=== PATIENT | male | born 1990 | race Caucasian/White ===

== ENCOUNTER 2017-03-07 05:33 | Emergency (ER) | payer OTHER ==
[~2017-03-07] VITALS: Ht 177.8 cm; Wt 78.3 kg
[~2017-03-07 05:33] MED LIST: DOXYCYCLINE HY100 MG PO; FLEXERIL10 MG PO; MOTRIN600 MG PO; NAPROSYN500 MG PO; OXYCONTIN40 MG PO; REGLAN5 MG PO; TRAMADOL HCL50 MG PO; ZOFRAN ODT4 MG PO
[2017-03-07 06:38] LABS: EOSINOPHIL (%) 1.4 % (0-5); EOSINOPHIL COUNT 0.2 K/uL (0-0.3); HEMATOCRIT 44.7 % (38.0-50.0); IMMATURE GRANULOCYTE (%) 0.2 % (0.0-0.7); INSTRUMENT ABS NEUTROPHIL CT 7.5 K/uL; MCH 28.5 PG (29.0-34.0); MCHC 33.6 G/DL (30.0-36.0); MCV 84.8 FL (86-99); MEAN PLAT.VOLUME 10.7 uM^3 (9.0-12.4); MONOCYTE (%) 7.2 % (3-12); MONOCYTE COUNT 0.8 K/uL (0-0.8); NEUTROPHIL (%) 71.9 % (45-76); NEUTROPHIL COUNT 7.5 K/uL (1.8-6.4); PLATELET COUNT 212 K/uL (156-360); RBC DIS.WIDTH-CV 12.9 % (11.8-14.6); RBC DIS.WIDTH-SD 39.4 % (39-53); RED BLOOD COUNT 5.27 M/uL (4.00-5.50); WHITE BLOOD COUNT 10.5 K/uL (4.1-10.2)
[2017-03-07 06:49] LABS: CHLORIDE 102 mEq/L (99-109); POTASSIUM 3.9 mEq/L (3.7-5.4); SODIUM 139 mEq/L (136-147)
[2017-03-07 06:50] LABS: GLUCOSE 109 mg/dL (70-99)
[2017-03-07 06:52] LABS: ANION GAP 11 MEQ/L (2-14)
[2017-03-07 06:54] LABS: GFR ESTIMATE (CALCULATED) > 59 mL/min/
[2017-03-07 06:55] LABS: UREA NITROGEN (BUN) 17 mg/dL (9-23)
[2017-03-07] MEDS ORDERED: FIORICET,ESG1 TABLET PO (09:33)
[2017-03-07] MEDS ORDERED: PROMETHAZINE HC25 M1 PO (09:33)
[2017-03-07 09:53] VITALS: BP 134/84
== END 2017-03-07 09:55 | disposition home or self-care (01) ==
LOC: EME 05:33
PROVIDERS: Emergency Medicine
DX: R51 Headache (principal); R11.2 Nausea with vomiting, unspecified; H53.149 Visual discomfort, unspecified; F17.200 Nicotine dependence, unspecified, uncomplicated
CPT/HCPCS: 70450; 80048; 85025; 99281; 99285; J1885; J2765; J7030

== ENCOUNTER 2017-03-26 02:50 | Emergency (ER) | payer OTHER ==
[~2017-03-26] VITALS: Ht 177.8 cm; Wt 79.9 kg
[~2017-03-26 02:50] MED LIST changes: +FIORICET,ESG1 TABLET PO; +PROMETHAZINE HC25 M1 PO
[2017-03-26] MEDS ORDERED: NARCAN4 MG NS (03:20)
[2017-03-26] MEDS ORDERED: ZOFRAN4 MG PO (03:20)
[2017-03-26 04:15] LABS: AMPHETAMINE NEGATIVE (500 ng/mL); BARBITURATES NEGATIVE (200 ng/mL); BENZODIAZEPINES NEGATIVE (150 ng/mL); COCAINE NEGATIVE (150 ng/mL); INTERNAL CONTROLS VALID? YES; METHADONE NEGATIVE (200 ng/mL); METHAMPHETAMINE NEGATIVE (500 ng/mL); OPIATES (MORPHINE) NEGATIVE (100 ng/mL); OXYCODONE NEGATIVE (100 ng/mL); PHENCYCLIDINE NEGATIVE (25 ng/mL); PROPOXYPHENE NEGATIVE (300 ng/mL); THC CANNABINOIDS PRESUMPTIVE POSITIVE (50 ng/mL); TRICYCLIC ANTIDEPRESSANTS NEGATIVE (300 ng/mL)
[2017-03-26 04:16] LABS: ADD MEDTOX COMMENT Y
[2017-03-26 04:43] VITALS: BP 114/75
== END 2017-03-26 04:44 | disposition home or self-care (01) ==
LOC: EME 02:50
PROVIDERS: Emergency Medicine
DX: T40.1X1A Poisoning by heroin, accidental (unintentional), initial encounter (principal); R11.2 Nausea with vomiting, unspecified; F17.200 Nicotine dependence, unspecified, uncomplicated
CPT/HCPCS: 84999; 93005; 99281; 99285; J2310; J2405; J7030

== ENCOUNTER 2017-05-20 07:18 | Inpatient (IN) | payer OTHER ==
[~2017-05-20] VITALS: Ht 177.8 cm; Wt 74.7 kg
[~2017-05-20 07:18] MED LIST changes: +NARCAN4 MG NS; +ZOFRAN4 MG PO
[2017-05-20 07:52] LABS: EOSINOPHIL (%) 1.2 % (0-5); EOSINOPHIL COUNT 0.1 K/uL (0-0.3); HEMATOCRIT 39.3 % (38.0-50.0); IMMATURE GRANULOCYTE (%) 0.2 % (0.0-0.7); INSTRUMENT ABS NEUTROPHIL CT 3.6 K/uL; LYMPHOCYTE COUNT 1.8 K/uL (1.0-2.8); MCHC 33.1 G/DL (30.0-36.0); MCV 84.5 FL (86-99); MEAN PLAT.VOLUME 10.4 uM^3 (9.0-12.4); MONOCYTE (%) 6.4 % (3-12); MONOCYTE COUNT 0.4 K/uL (0-0.8); NEUTROPHIL (%) 61.1 % (45-76); NEUTROPHIL COUNT 3.6 K/uL (1.8-6.4); PLATELET COUNT 186 K/uL (156-360); RBC DIS.WIDTH-CV 13.2 % (11.8-14.6); RBC DIS.WIDTH-SD 40.5 % (39-53); RED BLOOD COUNT 4.65 M/uL (4.00-5.50); WHITE BLOOD COUNT 5.8 K/uL (4.1-10.2)
[2017-05-20 08:22] LABS: CHLORIDE 108 mEq/L (99-109); POTASSIUM 4.3 mEq/L (3.7-5.4); SODIUM 141 mEq/L (136-147)
[2017-05-20 08:24] LABS: GLUCOSE 101 mg/dL (70-99)
[2017-05-20 08:25] LABS: ANION GAP 8 MEQ/L (2-14)
[2017-05-20 08:27] LABS: SERUM ETHYL ALCOHOL < 10 mg/dL
[2017-05-20 08:28] LABS: GFR ESTIMATE (CALCULATED) > 59 mL/min/
[2017-05-20 08:29] LABS: UREA NITROGEN (BUN) 9 mg/dL (9-23)
[2017-05-20 09:05] LABS: ADD MIUA? NO; BILIRUBIN NEGATIVE; BLOOD NEGATIVE; COLOR YELLOW ((YELLOW)); GLUCOSE (STRIP) NEGATIVE; KETONES NEGATIVE; LEUKOCYTES NEGATIVE; NITRITE NEGATIVE; PROTEIN (STRIP) NEGATIVE; SPECIFIC GRAVITY 1.013 (1.000-1.030); UROBILINOGEN 0.2 MG/DL (0.2-1.0)
[2017-05-20 09:15] LABS: ADD MEDTOX COMMENT Y; AMPHETAMINE NEGATIVE (500 ng/mL); BARBITURATES NEGATIVE (200 ng/mL); BENZODIAZEPINES NEGATIVE (150 ng/mL); COCAINE NEGATIVE (150 ng/mL); INTERNAL CONTROLS VALID? YES; METHADONE NEGATIVE (200 ng/mL); METHAMPHETAMINE NEGATIVE (500 ng/mL); OPIATES (MORPHINE) NEGATIVE (100 ng/mL); OXYCODONE NEGATIVE (100 ng/mL); PHENCYCLIDINE NEGATIVE (25 ng/mL); PROPOXYPHENE NEGATIVE (300 ng/mL); THC CANNABINOIDS PRESUMPTIVE POSITIVE (50 ng/mL); TRICYCLIC ANTIDEPRESSANTS NEGATIVE (300 ng/mL)
[2017-05-20 13:19] VITALS: BP 133/89
[2017-05-20 15:44] VITALS: BP 143/78
[2017-05-21 07:54] VITALS: BP 148/72
[2017-05-21 16:02] VITALS: BP 128/69
[2017-05-22 07:46] VITALS: BP 125/90
[2017-05-22 15:25] VITALS: BP 146/88
[2017-05-23 07:55] VITALS: BP 145/91
== END 2017-05-23 11:40 | disposition home or self-care (01) | DRG 881 ==
LOC: EME 07:18 → EDOF 10:34 → 1WEST 10:34 → EDOF 10:47 → ENRESERV 13:10 → 1WEST 13:17
PROVIDERS: Emergency Medicine
DX: F32.9 Major depressive disorder, single episode, unspecified (principal); R45.851 Suicidal ideations; F41.9 Anxiety disorder, unspecified; F12.20 Cannabis dependence, uncomplicated; F11.23 Opioid dependence with withdrawal; F14.20 Cocaine dependence, uncomplicated; J45.909 Unspecified asthma, uncomplicated; F17.200 Nicotine dependence, unspecified, uncomplicated; Z59.0 Homelessness
CPT/HCPCS: 80048; 81003; 84999; 85025; 90839; 97150 GO; 97166 GO; 99281; 99285; G0480; Q0169; Q0177

== ENCOUNTER 2017-06-02 18:10 | Inpatient (IN) | payer OTHER ==
[~2017-06-02] VITALS: Ht 177.8 cm; Wt 77.1 kg
[2017-06-02 20:33] LABS: HEMATOCRIT 43.1 % (38.0-50.0); MCH 27.9 PG (29.0-34.0); MCHC 32.9 G/DL (30.0-36.0); MCV 84.7 FL (86-99); MEAN PLAT.VOLUME 10.3 uM^3 (9.0-12.4); RBC DIS.WIDTH-CV 13.2 % (11.8-14.6); RBC DIS.WIDTH-SD 40.8 % (39-53); RED BLOOD COUNT 5.09 M/uL (4.00-5.50)
[2017-06-02 20:34] LABS: PLATELET COUNT 269 K/uL (156-360)
[2017-06-02 20:40] LABS: CHLORIDE 106 mEq/L (99-109); POTASSIUM 4.6 mEq/L (3.7-5.4); SODIUM 141 mEq/L (136-147)
[2017-06-02 20:42] LABS: GLUCOSE 111 mg/dL (70-99)
[2017-06-02 20:44] LABS: ANION GAP 10 MEQ/L (2-14)
[2017-06-02 20:45] LABS: SERUM ETHYL ALCOHOL < 10 mg/dL
[2017-06-02 20:46] LABS: GFR ESTIMATE (CALCULATED) > 59 mL/min/
[2017-06-02 20:47] LABS: UREA NITROGEN (BUN) 14 mg/dL (9-23)
[2017-06-02 22:33] LABS: ADD MEDTOX COMMENT Y; AMPHETAMINE NEGATIVE (500 ng/mL); BARBITURATES NEGATIVE (200 ng/mL); BENZODIAZEPINES NEGATIVE (150 ng/mL); COCAINE NEGATIVE (150 ng/mL); INTERNAL CONTROLS VALID? YES; METHADONE NEGATIVE (200 ng/mL); METHAMPHETAMINE NEGATIVE (500 ng/mL); OPIATES (MORPHINE) NEGATIVE (100 ng/mL); OXYCODONE NEGATIVE (100 ng/mL); PHENCYCLIDINE NEGATIVE (25 ng/mL); PROPOXYPHENE NEGATIVE (300 ng/mL); THC CANNABINOIDS PRESUMPTIVE POSITIVE (50 ng/mL); TRICYCLIC ANTIDEPRESSANTS NEGATIVE (300 ng/mL)
[2017-06-03 02:10] VITALS: BP 139/93
[2017-06-03 07:55] VITALS: BP 149/96
[2017-06-03 11:17] VITALS: BP 148/95
[2017-06-03 16:27] VITALS: BP 121/72
[2017-06-04 09:11] VITALS: BP 155/94
[2017-06-04 16:59] VITALS: BP 145/89
[2017-06-05 07:55] VITALS: BP 135/96
[2017-06-05 15:34] VITALS: BP 135/84
[2017-06-06 07:37] VITALS: BP 139/81
== END 2017-06-06 10:32 | disposition home or self-care (01) | DRG 881 ==
LOC: EME 18:10 → EDOF 22:08 → 1WEST 22:08 → ENRESERV 23:52 → 1WEST 06-03 02:01
DX: F32.9 Major depressive disorder, single episode, unspecified (principal); F11.20 Opioid dependence, uncomplicated; Z59.0 Homelessness; R45.851 Suicidal ideations; F17.200 Nicotine dependence, unspecified, uncomplicated; J45.909 Unspecified asthma, uncomplicated; Z91.5 Personal history of self-harm; F12.10 Cannabis abuse, uncomplicated; F14.10 Cocaine abuse, uncomplicated
CPT/HCPCS: 80048; 84999; 85027; 90839; 97150 GO; 97165 GO; 99281; 99285; G0480; Q0177

== ENCOUNTER 2017-09-10 15:56 | Inpatient (IN) | payer OTHER ==
[~2017-09-10] VITALS: Ht 177.8 cm; Wt 78.4 kg
[2017-09-10 17:38] LABS: HEMATOCRIT 38.3 % (38.0-50.0); MCH 29.3 PG (29.0-34.0); MCHC 34.5 G/DL (30.0-36.0); MCV 84.9 FL (86-99); MEAN PLAT.VOLUME 10.6 uM^3 (9.0-12.4); PLATELET COUNT 227 K/uL (156-360); RBC DIS.WIDTH-CV 13.2 % (11.8-14.6); RBC DIS.WIDTH-SD 41.1 % (39-53); RED BLOOD COUNT 4.51 M/uL (4.00-5.50); WHITE BLOOD COUNT 11.3 K/uL (4.1-10.2)
[2017-09-10 17:44] LABS: ADD MEDTOX COMMENT Y; AMPHETAMINE NEGATIVE (500 ng/mL); BARBITURATES NEGATIVE (200 ng/mL); BENZODIAZEPINES PRESUMPTIVE POSITIVE (150 ng/mL); COCAINE PRESUMPTIVE POSITIVE (150 ng/mL); INTERNAL CONTROLS VALID? YES; METHADONE NEGATIVE (200 ng/mL); METHAMPHETAMINE NEGATIVE (500 ng/mL); OPIATES (MORPHINE) NEGATIVE (100 ng/mL); OXYCODONE NEGATIVE (100 ng/mL); PHENCYCLIDINE NEGATIVE (25 ng/mL); PROPOXYPHENE NEGATIVE (300 ng/mL); THC CANNABINOIDS PRESUMPTIVE POSITIVE (50 ng/mL); TRICYCLIC ANTIDEPRESSANTS NEGATIVE (300 ng/mL)
[2017-09-10 17:47] LABS: CHLORIDE 108 mEq/L (99-109); SODIUM 140 mEq/L (136-147)
[2017-09-10 17:49] LABS: GLUCOSE 113 mg/dL (70-99)
[2017-09-10 17:50] LABS: ANION GAP 9 MEQ/L (2-14)
[2017-09-10 17:52] LABS: SERUM ETHYL ALCOHOL < 10 mg/dL
[2017-09-10 17:53] LABS: GFR ESTIMATE (CALCULATED) > 59 mL/min/
[2017-09-10 17:55] LABS: UREA NITROGEN (BUN) 15 mg/dL (9-23)
[2017-09-10 17:56] LABS: SALICYLATE < 5.0 MG/DL (15-30)
[2017-09-10 18:11] LABS: BENZODIAZEPINES QUANT VALUE 0 NG/ML; BENZODIAZEPINES, URINE SCREEN Negative (200 ng/mL)
[2017-09-10] MEDS ORDERED: TYLENOL REGULA325 MG PO (18:56)
[2017-09-10 20:11] VITALS: BP 134/85
[2017-09-11 07:57] VITALS: BP 130/75
[2017-09-11 15:41] VITALS: BP 146/85
[2017-09-12 07:35] VITALS: BP 132/76
[2017-09-12 15:31] VITALS: BP 129/66
[2017-09-12 20:32] VITALS: BP 126/82
[2017-09-12 20:39] LABS: C DIFF TOXIN NEGATIVE (NEGATIVE)
[2017-09-12 20:45] LABS: PROBE CHECK PASS; SPECIMEN PROCESSING CONTROL PASS
[2017-09-13 06:55] VITALS: BP 138/80
== END 2017-09-13 11:40 | disposition home or self-care (01) | DRG 881 ==
LOC: EME 15:56 → 1WEST 19:13 → EDOF 19:13 → ENRESERV 19:41 → 1WEST 20:04
PROVIDERS: Emergency Medicine; Psychiatry & Neurology Psychiatry
DX: F43.21 Adjustment disorder with depressed mood (principal); F11.20 Opioid dependence, uncomplicated; F14.10 Cocaine abuse, uncomplicated; F12.10 Cannabis abuse, uncomplicated; J45.909 Unspecified asthma, uncomplicated; F17.200 Nicotine dependence, unspecified, uncomplicated; Z59.0 Homelessness
CPT/HCPCS: 80048; 84999; 85027; 87493; 90839; 97150 GO; 99281; 99285; G0480; Q0169; Q0177

== ENCOUNTER 2017-09-22 18:23 | Emergency (ER) | payer OTHER ==
[~2017-09-22] VITALS: Ht 180.3 cm; Wt 79.1 kg
[~2017-09-22 18:23] MED LIST changes: +TYLENOL REGULA325 MG PO
[2017-09-22 19:13] VITALS: BP 135/92
== END 2017-09-22 19:15 | disposition left against medical advice (07) ==
LOC: EME 18:23
DX: Z53.21 Procedure and treatment not carried out due to patient leaving prior to being seen by health care provider (principal)
CPT/HCPCS: J2310

== ENCOUNTER 2017-09-24 20:47 | Inpatient (IN) | payer OTHER ==
[~2017-09-24] VITALS: Ht 177.8 cm; Wt 74.7 kg
[2017-09-24 22:37] LABS: HEMATOCRIT 37.7 % (38.0-50.0); MCH 28.7 PG (29.0-34.0); MCHC 33.7 G/DL (30.0-36.0); MCV 85.3 FL (86-99); MEAN PLAT.VOLUME 10.6 uM^3 (9.0-12.4); PLATELET COUNT 244 K/uL (156-360); RBC DIS.WIDTH-CV 13.1 % (11.8-14.6); RBC DIS.WIDTH-SD 40.5 % (39-53); RED BLOOD COUNT 4.42 M/uL (4.00-5.50); WHITE BLOOD COUNT 15.9 K/uL (4.1-10.2)
[2017-09-24 22:52] LABS: CHLORIDE 104 mEq/L (99-109); SODIUM 139 mEq/L (136-147)
[2017-09-24 22:53] LABS: GLUCOSE 101 mg/dL (70-99)
[2017-09-24 22:55] LABS: ANION GAP 8 MEQ/L (2-14)
[2017-09-24 22:57] LABS: GFR ESTIMATE (CALCULATED) > 59 mL/min/; SERUM ETHYL ALCOHOL < 10 mg/dL
[2017-09-24 22:59] LABS: UREA NITROGEN (BUN) 16 mg/dL (9-23)
[2017-09-24 23:01] LABS: SALICYLATE < 5.0 MG/DL (15-30)
[2017-09-25 00:26] LABS: ADD MEDTOX COMMENT Y; AMPHETAMINE NEGATIVE (500 ng/mL); BARBITURATES NEGATIVE (200 ng/mL); BENZODIAZEPINES NEGATIVE (150 ng/mL); COCAINE NEGATIVE (150 ng/mL); INTERNAL CONTROLS VALID? YES; METHADONE NEGATIVE (200 ng/mL); METHAMPHETAMINE NEGATIVE (500 ng/mL); OPIATES (MORPHINE) NEGATIVE (100 ng/mL); OXYCODONE NEGATIVE (100 ng/mL); PHENCYCLIDINE NEGATIVE (25 ng/mL); PROPOXYPHENE NEGATIVE (300 ng/mL); THC CANNABINOIDS PRESUMPTIVE POSITIVE (50 ng/mL); TRICYCLIC ANTIDEPRESSANTS NEGATIVE (300 ng/mL)
[2017-09-25 01:24] VITALS: BP 117/81
[2017-09-25 07:52] VITALS: BP 117/74
[2017-09-25 15:30] VITALS: BP 124/67
[2017-09-26 07:44] VITALS: BP 140/88
== END 2017-09-26 09:53 | disposition other institution (70) | DRG 881 ==
LOC: EME 20:47 → 1WEST 09-25 00:14 → EDOF 09-25 00:14 → ENRESERV 09-25 00:45 → 1WEST 09-25 01:15
PROVIDERS: Emergency Medicine
PROC: HZ2ZZZZ Detoxification Services for Substance Abuse Treatment (ICD-10-PCS; principal; 2017-09-25)
DX: F43.21 Adjustment disorder with depressed mood (principal); F14.10 Cocaine abuse, uncomplicated; F12.10 Cannabis abuse, uncomplicated; F11.10 Opioid abuse, uncomplicated; F17.200 Nicotine dependence, unspecified, uncomplicated; Z59.0 Homelessness
CPT/HCPCS: 80048; 84999; 85027; 90839; 99281; 99284; G0480; Q0177

== ENCOUNTER 2018-02-10 18:59 | Inpatient (IN) | payer OTHER ==
[~2018-02-10] VITALS: Ht 180.3 cm; Wt 82.4 kg
[2018-02-10 20:37] LABS: HEMATOCRIT 46.9 % (38.0-50.0); HEMOGLOBIN 16.4 G/DL (12.5-16.6); MCH 30.5 PG (29.0-34.0); MCV 87.2 FL (86-99); PLATELET COUNT 216 K/uL (156-360); RBC DIS.WIDTH-CV 12.5 % (11.8-14.6); RBC DIS.WIDTH-SD 39.9 % (39-53); RED BLOOD COUNT 5.38 M/uL (4.00-5.50); WHITE BLOOD COUNT 21.2 K/uL (4.1-10.2)
[2018-02-10 20:48] LABS: CHLORIDE 101 mEq/L (99-109); POTASSIUM 4.3 mEq/L (3.7-5.4); SODIUM 138 mEq/L (136-147)
[2018-02-10 20:50] LABS: GLUCOSE 102 mg/dL (70-99)
[2018-02-10 20:54] LABS: CREATININE 1.1 mg/dL (0.6-1.3); GFR ESTIMATE (CALCULATED) > 59 mL/min/ (58.99-99999)
[2018-02-10 20:55] LABS: UREA NITROGEN (BUN) 21 mg/dL (9-23)
[2018-02-10] MEDS ORDERED: TYLENOL REGULA325 MG PO (21:12)
[2018-02-11 00:09] LABS: BASOPHIL (%) 0.1 % (0-1); EOSINOPHIL (%) 0 % (0-5); HEMATOCRIT 40.8 % (38.0-50.0); HEMOGLOBIN 14.1 G/DL (12.5-16.6); IMMATURE GRANULOCYTE (%) 0.6 % (0.0-0.7); LYMPHOCYTE (%) 4.4 % (15-42); LYMPHOCYTE COUNT 0.9 K/uL (1.0-2.8); MCH 29.9 PG (29.0-34.0); MCHC 34.6 G/DL (30.0-36.0); MCV 86.6 FL (86-99); MONOCYTE (%) 1.8 % (3-12); MONOCYTE COUNT 0.4 K/uL (0-0.8); NEUTROPHIL (%) 93.1 % (45-76); NEUTROPHIL COUNT 18.9 K/uL (1.8-6.4); PLATELET COUNT 190 K/uL (156-360); RBC DIS.WIDTH-CV 12.4 % (11.8-14.6); RBC DIS.WIDTH-SD 39.7 % (39-53); RED BLOOD COUNT 4.71 M/uL (4.00-5.50); WHITE BLOOD COUNT 20.3 K/uL (4.1-10.2)
[2018-02-11 00:23] LABS: CHLORIDE 108 mEq/L (99-109); POTASSIUM 4.4 mEq/L (3.7-5.4); SODIUM 137 mEq/L (136-147)
[2018-02-11 00:24] LABS: GLUCOSE 134 mg/dL (70-99)
[2018-02-11 00:28] LABS: GFR ESTIMATE (CALCULATED) > 59 mL/min/ (58.99-99999)
[2018-02-11 00:29] LABS: UREA NITROGEN (BUN) 17 mg/dL (9-23)
[2018-02-11 00:45] VITALS: BP 142/66
[2018-02-11 00:47] VITALS: BP 108/73
== END 2018-02-11 01:09 | disposition left against medical advice (07) | DRG 917 ==
LOC: EME → EDBD 18:59 → EDOF 23:30 → ENRESERV 23:32 → 4EAST 02-11 00:33
PROVIDERS: Hospitalist; Physician Assistant
DX: T40.1X1A Poisoning by heroin, accidental (unintentional), initial encounter (principal); J69.0 Pneumonitis due to inhalation of food and vomit; R09.02 Hypoxemia; F11.10 Opioid abuse, uncomplicated; J45.909 Unspecified asthma, uncomplicated; G43.909 Migraine, unspecified, not intractable, without status migrainosus; F17.200 Nicotine dependence, unspecified, uncomplicated; Z59.0 Homelessness; Z88.5 Allergy status to narcotic agent
CPT/HCPCS: 71045; 80048; 80048 91; 80306 90; 83605; 85025; 85027; 87040; 87070; 87205; 94640; 94640 76; 99281; 99285; J0295; J2310; J2930; J7030; J7050

== ENCOUNTER 2018-03-18 14:12 | Emergency (ER) | payer OTHER ==
[~2018-03-18] VITALS: Ht 177.8 cm; Wt 73.1 kg
[2018-03-18 15:24] LABS: HEMATOCRIT 44.9 % (38.0-50.0); HEMOGLOBIN 15.7 G/DL (12.5-16.6); MCH 29.3 PG (29.0-34.0); MCV 83.9 FL (86-99); PLATELET COUNT 322 K/uL (156-360); RBC DIS.WIDTH-CV 12.3 % (11.8-14.6); RBC DIS.WIDTH-SD 37.3 % (39-53); RED BLOOD COUNT 5.35 M/uL (4.00-5.50); WHITE BLOOD COUNT 11.1 K/uL (4.1-10.2)
[2018-03-18 16:26] LABS: ACETAMINOPHEN (TYLENOL) < 10 MCG/ML (10-30); CHLORIDE 107 MEQ/L (99-109); CREATININE 1.1 MG/DL (0.6-1.3); GFR ESTIMATE (CALCULATED) > 59 mL/min/ (58.99-99999); GLUCOSE 109 mg/dL (70-99); POTASSIUM 4.1 MEQ/L (3.7-5.4); SALICYLATE < 3.0 MG/DL (15-30); SERUM ETHYL ALCOHOL < 10 mg/dL; SODIUM 138 MEQ/L (136-147); UREA NITROGEN (BUN) 9 mg/dL (9-23)
[2018-03-18 17:21] LABS: AMPHETAMINE NEGATIVE (500 ng/mL); BARBITURATES NEGATIVE (200 ng/mL); BENZODIAZEPINES NEGATIVE (150 ng/mL); BUPRENORPHINE NEGATIVE (10 ng/mL); COCAINE PRESUMPTIVE POSITIVE (150 ng/mL); METHADONE NEGATIVE (200 ng/mL); METHAMPHETAMINE NEGATIVE (500 ng/mL); OPIATES (MORPHINE) NEGATIVE (100 ng/mL); OXYCODONE NEGATIVE (100 ng/mL); PHENCYCLIDINE NEGATIVE (25 ng/mL); PROPOXYPHENE NEGATIVE (300 ng/mL); THC CANNABINOIDS NEGATIVE (50 ng/mL); TRICYCLIC ANTIDEPRESSANTS NEGATIVE (300 ng/mL)
[2018-03-18 22:01] VITALS: BP 143/85
== END 2018-03-18 22:04 | disposition short-term general hospital (02) ==
LOC: EME 14:12
PROVIDERS: Emergency Medicine
DX: F11.10 Opioid abuse, uncomplicated (principal); R45.851 Suicidal ideations; F32.9 Major depressive disorder, single episode, unspecified; F14.90 Cocaine use, unspecified, uncomplicated; J45.909 Unspecified asthma, uncomplicated; F17.200 Nicotine dependence, unspecified, uncomplicated; Z88.5 Allergy status to narcotic agent
CPT/HCPCS: 80048; 84999; 85027; 90837; 99281; 99285; G0480; J2405; J7030